=== PATIENT | female | born 1995 ===

== ENCOUNTER 2020-04-13 01:08 | Emergency (ER) | payer SELFPAY ==
[~2020-04-13] VITALS: Ht 162.6 cm; Wt 68.2 kg
[2020-04-13 01:18] VITALS: Ht 162.6 cm; Wt 68.2 kg
[2020-04-13 01:46] LABS: CALC OSMOLALITY 275 mosm/kg (275-300); CALCIUM 9.1 mg/dL (8.5-10.1); CARBON DIOXIDE 25.8 mmol/L (21.0-32.0); CHLORIDE - SERUM 103 mmol/L (98-107); CREATININE - SERUM 0.9 mg/dL (0.6-1.3); GLUCOSE 111 mg/dL (74-106); SODIUM 137 mmol/L (136-145); UREA NITROGEN 15 mg/dL (7-18); eGFR NON AFRICAN AMERICAN 80 mL/min (90-120)
[2020-04-13 01:48] LABS: ALBUMIN 3.4 g/dL (3.4-5.0); ALKALINE PHOSPHATASE 47 U/L (30-120); ALT (SGPT) 33 U/L (10-68); BILIRUBIN - TOTAL 0.22 mg/dL (0.2-1.3); LIPASE 193 U/L (73-393); PROTEIN - SERUM 7.7 g/dL (6.4-8.2)
[2020-04-13 01:55] LABS: POTASSIUM - SERUM 3.6 mmol/L (3.5-5.1)
[2020-04-13 02:02] LABS: BASOPHILS 0.2 % (0-2); BILIRUBIN NEGATIVE (NEGATIVE); EOSINOPHILS 0.3 % (0-7); HEMATOCRIT 40.8 % (36.0-48.0); HEMOGLOBIN 13.7 g/dL (12-16); IMMATURE GRANULOCYTES 0.2 % (0-5); KETONE NEGATIVE (NEGATIVE); LYMPHOCYTES 18.6 % (15-50); MCH 29.4 pg (26.0-34.0); MCHC 33.6 g/dL (31.0-37.0); MCV 87.6 fL (80.0-100.0); MEAN PLATELET VOLUME 9.4 fL (7.4-10.4); MONOCYTES 9.3 % (2-11); NEUTROPHILS 71.4 % (40-80); NITRITE NEGATIVE (NEGATIVE); PLATELET COUNT 256 10x3/uL (130-400); RBC 4.66 10x6/uL (4.00-5.40); RDW 12.4 % (11.5-14.5); UROBILINOGEN NORMAL mg/dL (< 2); WBC 13.3 10x3/uL (4.8-10.8)
[2020-04-13 02:03] LABS: HCG SERUM NEGATIVE (NEGATIVE)
[2020-04-13 03:47] VITALS: BP 105/68
== END 2020-04-13 03:47 | disposition home or self-care (01) ==
LOC: D.ER 01:08
PROVIDERS: Emergency Medicine
DX: R10.9 Unspecified abdominal pain (principal)